=== PATIENT | female | born 1950 | race Caucasian/White ===

== ENCOUNTER → 2020-09-01 11:48 | Outpatient (CLI) | payer MEDICARE, OTHER, SELFPAY ==
--- NOTE | ~2020-09-01 | MM_ITS ---
EXAMINATION: MM screening daniel BI w rakan HISTORY: Screening mammogram TECHNIQUE: Craniocaudal and mediolateral oblique 3-D tomosynthesis images were obtained and synthetic 2-D images were generated. CAD analysis was submitted and interpreted. COMPARISON: 03/13/2019, 02/04/2018, 11/08/2016 bilateral digital screening mammogram examinations BREAST PARENCHYMAL COMPOSITION: There are scattered areas of fibroglandular density. FINDINGS: Occasional low-density circumscribed opacities are again noted. Minimal benign calcificatio n. There is no evidence of suspicious mass, calcification, or architectural distortion to suggest mal ignancy in either breast. There has been no suspicious interval change. IMPRESSION: 1. No mammographic evidence of malignancy. 2. Recommend routine screening mammography in one year. BI-RADS Category 2: Benign finding(s). Reviewed, dictated and finalized at location A.
== END ==
PROVIDERS: Visit Provider Nurse Practitioner
DX: Z12.31 Encounter for screening mammogram for malignant neoplasm of breast (principal)
CPT/HCPCS: 77063; 77067

== ENCOUNTER → 2021-07-11 11:25 | Outpatient (CLI) | payer MEDICARE, OTHER, SELFPAY ==
--- NOTE | ~2021-07-11 | US_ITS ---
EXAMINATION: US transvaginal DATE: 07/11/2021 11:48 INDICATION: Postmenopausal bleeding TECHNIQUE: Multiple endovaginal sonographic images of the pelvis were obtained. COMPARISON: None. FINDINGS: The uterus measures 7.6 x 3.6 x 4.4 cm. The endometrial complex measures 11 mm. The ovaries are not visualized however no adnexal abnormality is seen. There is no free fluid in the pelvis. A n abothian cyst is noted in the cervix. IMPRESSION: 1. Endometrial thickening which may be due to hyperplasia, polyp, or malignancy. Endometrial sampling is recommended. Reviewed, dictated and finalized at location B. IMPRESSION: 1. Endometrial thickening which may be due to hyperplasia, polyp, or malignancy . Endometrial sampling is recommended.
== END ==
PROVIDERS: PCP Family Medicine; Visit Provider Nurse Practitioner
DX: N95.0 Postmenopausal bleeding (principal); R93.89 Abnormal findings on diagnostic imaging of other specified body structures; N88.8 Other specified noninflammatory disorders of cervix uteri
CPT/HCPCS: 76830

== ENCOUNTER 2021-08-24 08:53 | Outpatient (CLI) | payer MEDICARE, OTHER, SELFPAY ==
[2021-08-24 09:32] LABS: Anion Gap 11 mmol/L (8-16); Blood Urea Nitrogen 19 mg/dL (7-17); Calcium 9.5 mg/dL (8.4-10.2); Carbon Dioxide 30 mmol/L (22-30); Chloride 99 mmol/L (98-107); Estimated Glomerular Filt Rate > 60; Glucose 158 mg/dL (65-110); Sodium 140 mmol/L (137-145)
== END 2021-08-24 08:54 | disposition home or self-care (01) ==
PROVIDERS: Anesthesiology; PCP Family Medicine; Visit Provider Obstetrics & Gynecology Gynecology
DX: I10 Essential (primary) hypertension (principal); Z01.818 Encounter for other preprocedural examination
CPT/HCPCS: 36415; 80048

== ENCOUNTER 2021-08-28 02:41 | Day surgery (SDC) | payer MEDICARE, OTHER, SELFPAY ==
[2021-08-23 13:02] VITALS: BMI 41.6
[2021-08-28 07:32] VITALS: BP 141/70; PULSE 69; RESP 16; TEMP 36.8; O2SAT 98
[2021-08-28] MEDS: ACETAMINOPHEN 500 MG TABLET 1000 MG PO (07:51)
--- NOTE | 2021-08-28 07:53 | P.HP_ITS ---
History of Present Illness History of Present Illness Consent: Risks, benefits, and alternatives have been discussed and questions answered. Patient agrees to proceed with procedure. Chief complaint: post menopausal bleeding Narrative: Nelia Rosado is a 71 year old female With postmenopausal bleeding. She underwent pelvic ultrasound which reveals a thickened endometrial lining at 11mm. It was recommended to undergo D&C hysteroscopy. Risks of infection, bleeding, perforation, and possible pathology were reviewed. Patient voices understanding and agrees to proceed. Review of Systems Constitutional: Constitutional: Reports fatigue and Reports night sweats ( And hot flashes) Musculoskeletal: Musculoskeletal: Reports arthralgias [facility] Past Medical History Medical History (Updated 08/28/21 @ 07:59 by Portia Smith MD) Neck mass excision 2019 (normal spontaneous vaginal delivery) Obstructive sleep apnea Scoliosis status post surgery in 1970 Surgical History Surgical History (Updated 08/28/21 @ 07:58 by Portia Smith MD) History of Status post cholecystectomy Status post total hip replacement, left Social History Social History Smoking status: Never smoker Alcohol intake: current Alcohol use details: ONE DRINK PER MONTH Living arrangements: with family Spiritual care concerns: No Meds Home Medications and Allergies Home Medications Medication Instructions Recorded Confirmed Type aspirin [Aspir-Low] 81 mg PO HS 08/23/21 08/28/21 History calcium carbonate-vitamin D3 2 cap PO DAILY 08/23/21 08/28/21 History [Calcium 600 + D(3)] hydrochlorothiazide 25 mg PO DAILY 08/23/21 08/28/21 History metoprolol tartrate 100 mg PO BID 08/23/21 08/28/21 History pantoprazole 40 mg PO DAILY 08/23/21 08/28/21 History sucralfate 1 g PO BID 08/23/21 08/28/21 History Allergies Allergy/AdvReac Type Severity Reaction Status Date / Time Sulfa (Sulfonamide Allergy Severe THROAT Verified 08/28/21 07:47 Antibiotics) SWELLING Exam Const: General: healthy appearing and alert Orientation/consciousness: patient oriented x3 Resp: Effort & Inspection: normal respiratory effort Auscultation: clear to auscultation bilaterally Cardio: Rate: regular rate Rhythm: regular rhythm GI: GI Palp: Yes Soft to palpation, No Tenderness to palpation present (GI) and No Palpable mass present : External Female Exam: normal external appearance Speculum Exam - Vagina: normal appearance of the vagina, normal vaginal discharge and vagina atrophic Speculum Exam - Cervix: normal appearance of the cervix Bimanual exam- vagina & uterus: uterine size normal and consistency normal Bimanual Exam- Adnexa, other: normal adnexae and No adnexal tenderness Neuro: General: patient oriented x3 Assessment and Plan Assessment and plan (1) Post-menopausal bleeding: Code(s): N95.0 - Postmenopausal bleeding Status: Acute Assessment and Plan: plan to proceed with D&C hysteroscopy
--- NOTE | 2021-08-28 07:53 | WPDHPUPDATE1 ---
History and Physical Update Update Date/Time: 08/28/21 07:53 History and Physical has been reviewed, including an updated exam of the patient. There are NO changes in the patient's condition. Risks, benefits, and alternatives have been discussed and questions answered. Patient agrees to proceed with procedure.
[2021-08-28] MEDS: LACTATED RINGERS 1,000 ML 30 ML IV CONT (08:00)
--- NOTE | 2021-08-28 08:06 | P.PNAN_ITS ---
Anes - Initial Pre Proc Eval Procedure: Operation Date: 08/28/21 09:15 Proposed Procedures p Hysteroscopy, Dilation and Curettage - Portia Smith MD Date/Time: 08/28/21 08:06 Surgeon: Portia Smith MD Pre Op Diagnosis: post menopausal bleeding Patient Data Age: 71 Gender: F Height: 1.68 m Weight: 117.1 kg Last Vital Signs Temp 36.8 C 08/28/21 07:32 Pulse 69 08/28/21 07:32 Resp 16 08/28/21 07:32 BP 141/70 H 08/28/21 07:32 Pulse Ox 98 08/28/21 07:32 Allergies Allergy/AdvReac Type Severity Reaction Status Date / Time Sulfa (Sulfonamide Allergy Severe THROAT Verified 08/28/21 07:47 Antibiotics) SWELLING Home Medications Medication Instructions Recorded Confirmed Type aspirin [Aspir-Low] 81 mg PO HS 08/23/21 08/28/21 History calcium carbonate-vitamin D3 2 cap PO DAILY 08/23/21 08/28/21 History [Calcium 600 + D(3)] hydrochlorothiazide 25 mg PO DAILY 08/23/21 08/28/21 History metoprolol tartrate 100 mg PO BID 08/23/21 08/28/21 History pantoprazole 40 mg PO DAILY 08/23/21 08/28/21 History sucralfate 1 g PO BID 08/23/21 08/28/21 History Patient hx anesthesia problems: none Family hx anesthesia problems: none Results Review: All pre-operative results and documents have been reviewed as part of the pre-operative evaluation. [facility] Past Medical History Medical History Neck mass excision 2019 (normal spontaneous vaginal delivery) Obstructive sleep apnea Scoliosis status post surgery in 1970 Surgical History Surgical History History of Status post cholecystectomy Status post total hip replacement, left Social History Social History Smoking status: Never smoker Alcohol intake: current Alcohol use details: ONE DRINK PER MONTH Living arrangements: with family Spiritual care concerns: No Anes - Eval Final PreProcedure Day of Procedure 08/28/21 08:06 Patient weight: morbidly obese Heart: regular rate and rhythm Lungs: clear to auscultation Airway: Mallampati scale class II Neurological: alert and oriented Last oral intake: >/= 8 hours ASA classification: III Emergent: no Anesthetic plan: proceed Anesthesia type and monitoring: general GIVS and standard monitoring Results Review: All pre-operative results and documents have been reviewed as part of the pre-operative evaluation. Informed Consent: The patient's anesthetic plan and its attendant risks and benefits were discussed with the patient/family/POA. Questions were solicited and answers provided to the satisfaction of the patient/family/POA.
[2021-08-28] MEDS: LIDOCAINE HCL 1% PF 30 ML VIAL INFILTRATE (09:09)
--- NOTE | 2021-08-28 09:20 | P.OP_ITS ---
Procedure Note - Detailed Date of Procedure 08/28/21 Pre-op Diagnosis post menopausal bleeding Post-op Diagnosis same Procedure Performed D&C hysteroscopy with MyoSure resection Surgeon Portia Smith MD Anesthesia MAC and local Findings uterus sounds to 9cm; 2 large polyps 1 arising from the right sidewall and 1 arising from the left sidewall; atrophic appearance Description of Procedure the patient was taken to the operating room and placed under anesthesia in the dorsal lithotomy position. She is prepped and draped in usual sterile fashion. Malverne speculum was placed in the vagina and the cervix was grasped on the anterior lip with a tenaculum. The cervix was injected with 1% lidocaine in each quadrant. The uterus is sounded to 9cm and the cervix is serially dilated with Hegar. The diagnostic hysteroscope was placed with the stated findings. The MyoSure device is opened and placed in under direct visualization both polyps are removed in their entirety. The hysteroscope was removed and the medium sharp curette is used to curette the endometrium until a good uterine cry was noted in all areas. Minimal materials obtained consistent with the atrophic appearance. All instruments are removed. Sponge, needle, and instrument counts are correct per the OR staff. Patient is awakened from anesthesia and taken to recovery in stable condition. Estimated Blood Loss 5 Drains No Packing No Pathology yes ( Endometrial shavings and curettings) Complications No immediate complications Condition stable Disposition PACU
[2021-08-28 09:23] VITALS: BP 136/61; PULSE 61; RESP 15; O2SAT 95
[2021-08-28 09:50] VITALS: BP 137/67; PULSE 59; RESP 16
[2021-08-28] MEDS: oxyCODONE HCL (*CRX) 5 MG TAB IR PO (10:06)
== END 2021-08-28 10:10 | disposition home or self-care (01) ==
PROVIDERS: PCP Family Medicine; Visit Provider Obstetrics & Gynecology Gynecology
PROC: 0U5B8ZZ Destruction of Endometrium, Via Natural or Artificial Opening Endoscopic (ICD-10-PCS; CPT 58563; principal; 2021-08-28 09:15)
DX: N95.0 Postmenopausal bleeding (principal); N84.0 Polyp of corpus uteri; G47.33 Obstructive sleep apnea (adult) (pediatric); Z79.82 Long term (current) use of aspirin; E66.01 Morbid (severe) obesity due to excess calories; Z68.41 Body mass index [BMI] 40.0-44.9, adult
CPT/HCPCS: 58558; 36415; 80048; 88305; A9270; J2704; J3010; J7030; J7120

== ENCOUNTER → 2021-09-05 10:23 | Outpatient (CLI) | payer MEDICARE, OTHER, SELFPAY ==
--- NOTE | ~2021-09-05 | MM_ITS ---
EXAMINATION: MM screening daniel BI w rakan HISTORY: Screening TECHNIQUE: Craniocaudal and mediolateral oblique 3-D tomosynthesis images were obtained and synthetic 2-D images were generated. CAD analysis was submitted and interpreted. COMPARISON: Comparison to multiple prior studies sequentially, with oldest reviewed study dated 03/2014. BREAST PARENCHYMAL COMPOSITION: The breasts are almost entirely fatty. FINDINGS: There is no evidence of suspicious mass, calcification, or architectural distortion to sugg est malignancy in either breast. There has been no suspicious interval change. IMPRESSION: 1. No mammographic evidence of malignancy. 2. Recommend routine screening mammography in one year. BI-RADS Category 1: Negative Reviewed, dictated and finalized at location A.
== END ==
PROVIDERS: PCP Family Medicine; Visit Provider Nurse Practitioner
DX: Z12.31 Encounter for screening mammogram for malignant neoplasm of breast (principal)
CPT/HCPCS: 77063; 77067

== ENCOUNTER → 2023-02-05 11:05 | Outpatient (CLI) | payer MEDICARE, OTHER, SELFPAY ==
--- NOTE | ~2023-02-05 | DEXA_ITS ---
Bone Density Report Name: YON LOCK Age: 72 Sex: Female Ethnicity: White Date of : 1950 Indication: postmenopausal; screening for osteoporosis; height loss; Referring Provider: FITO, ELLA Study: Bone densitometry was performed. Exam Date: February 05, 2023 Accession number: [id number] Bone Density: Region BMD T-score Z-score Classification Total Forearm (Left) 0.502 -1.2 1.0 1/3 Forearm (Left) 0.677 -0.1 2.1 UD Forearm (Left) 0.332 -1.6 0.1 World Health Organization criteria for BMD impression classify patients as: Normal (T-score at or above -1.0), Osteopenia (T-score between -1.0 and -2.5), or Osteoporosis (T-score at or below -2.5). Clinical Information Provided by Patient: Has used the following medications: Vitamin D, Calcium Patient maximum height was 68 Menopause Age: 52 No regular weight bearing exercise Does not regularly consume dairy products Drinks caffeinated beverages Onset of menses at age 18 Number of children 2 Impression: The patient has normal bone mass. Discussion: LOW RISK OF FRACTURE; BONE DENSITY IS WELL ABOVE THE MINIMUM DESIRABLE LEVEL AND ABOVE AVERAGE FOR AGE AND SEX AT ALL SKELETAL SITES TESTED. This person's bone density is above expected limits for age and sex. This is rarely clinically significant, but should be pursued if there are significant musculoskeletal complaints. The patient should follow a healthful lifestyle (good nutrition with adequate calcium and vitamin D, and appropriate weight-bearing exercise). Follow-Up: Consider repeating this study in 5 years or sooner if there is some new clinical indication. Reported by: TIGRE on 02/05/2023 11:51:00 AM. Reviewed, dictated and finalized at location Faisal BOYD
--- NOTE | ~2023-02-05 | MM_ITS ---
EXAMINATION: MM screening daniel BI w rakan HISTORY: Screening mammogram TECHNIQUE: Craniocaudal and mediolateral oblique 3-D tomosynthesis images were obtained and synthetic 2-D images were generated. CAD analysis was submitted and interpreted. COMPARISON: 09/05/2021, 09/01/2020, 03/13/2019 bilateral screening mammogram examinations BREAST PARENCHYMAL COMPOSITION: The breasts are almost entirely fatty. FINDINGS: There is an 8 mm asymmetric density in the inner mid right breast at mid depth. Diagnostic right mammogram and targeted right breast ultrasound examination are recommended. Otherwise there is no evidence of suspicious mass, calcification, or architectural distortion to sugg est malignancy in either breast. There has been no other suspicious interval change. IMPRESSION: 1. 8 mm asymmetric opacity, inner mid right breast 2. Diagnostic right mammogram and targeted right breast ultrasound examination are recommended BI-RADS Category 0: Incomplete: Needs additional imaging evaluation. Reviewed, dictated and finalized at location A.
--- NOTE | ~2023-02-05 | DEXA_ITS ---
Bone Density Report Name: YON LOCK Age: 72 Sex: Female Ethnicity: White Date of : 1950 Indication: postmenopausal; screening for osteoporosis; height loss; Referring Provider: FITO, ELLA Study: Bone densitometry was performed. Exam Date: February 05, 2023 Accession number: [id number] Bone Density: Region BMD T-score Z-score Classification Femoral Neck (Right) 0.816 -0.3 1.5 Normal Total Hip (Right) 0.927 -0.1 1.4 Normal World Health Organization criteria for BMD impression classify patients as: Normal (T-score at or above -1.0), Osteopenia (T-score between -1.0 and -2.5), or Osteoporosis (T-score at or below -2.5). 10-year Fracture Risk: FRAX not reported because: All T-scores for Spine Total, Hip Total, Femoral Neck at or above -1.0 Previous Exams: Region Exam Age BMD T-score BMD Change BMD Change Date g/cm2 vs Baseline vs Previous Total Hip(Right) 02/05/2023 72 0.927 -0.1 0.208 0.047 03/13/2019 68 0.879 -0.5 0.161 0.007 11/08/2016 66 0.872 -0.6 0.154 0.103* 09/22/2013 63 0.769 -1.4 0.051 -0.067 10/24/2005 55 0.836 -0.9 0.117 0.117 12/11/2003 53 0.718 -1.8 *Denotes significance at 95% confidence level, LSC for Total Hip = 0.027 g/cm2 Clinical Information Provided by Patient: Has used the following medications: Vitamin D, Calcium Patient maximum height was 68 Menopause Age: 52 No regular weight bearing exercise Does not regularly consume dairy products Drinks caffeinated beverages Onset of menses at age 18 Number of children 2 Impression: The patient has normal bone mass. No significant bone loss was observed. Discussion: BONE DENSITY IS ABOVE THE MINIMUM DESIRABLE LEVEL AT ALL SKELETAL SITES TESTED. This patient?s bone mineral density is above the minimum desirable level (T-score -1.0 or better) at all sites measured. The patient should follow a healthful lifestyle (good nutrition with adequate calcium and vitamin D, and appropriate weight-bearing exercise). Follow-Up: Consider repeating this study in 5 years or sooner if there is some new clinical indication. Reported by: TIGRE on 02/05/2023 11:37:00 AM. Reviewed, dictated and finalized at location Faisal BOYD
== END ==
PROVIDERS: PCP Nurse Practitioner; Visit Provider Nurse Practitioner
DX: Z12.31 Encounter for screening mammogram for malignant neoplasm of breast (principal); Z78.0 Asymptomatic menopausal state; R92.8 Other abnormal and inconclusive findings on diagnostic imaging of breast
CPT/HCPCS: 77063; 77067; 77080; 77081

== ENCOUNTER → 2023-03-05 09:23 | Outpatient (CLI) | payer MEDICARE, OTHER, SELFPAY ==
--- NOTE | ~2023-03-05 | MMUS_ITS ---
EXAMINATION: MM diagnostic daniel RT w rakan, US breast RT limited HISTORY: Right breast mass on screening mammogram TECHNIQUE: Additional 3-D tomosynthesis images of the right breast were performed and synthetic 2-D i mages were generated. CAD analysis was submitted and interpreted. High resolution limited right breas t ultrasound was performed. COMPARISON: 02/05/2023, 09/05/2021, 09/01/2020, 03/13/2019, 02/04/2018 FINDINGS: MAMMOGRAPHIC FINDINGS: There is an approximately 8 mm indistinct mass at the 4:00 location, 6 cm from the nipple which appea rs to be waxing and waning compared to multiple prior mammograms. No suspicious calcification or arch itectural distortion are identified. ULTRASOUND: There is no evidence of focal abnormal solid or cystic mass in the vicinity of the mammographic findi ng in question. There is a 5 mm cyst at the 3:00 location near the nipple. IMPRESSION: 1. Probably benign right breast findings. 2. Recommend 6 month follow-up right diagnostic mammogram and possible ultrasound. BI-RADS category 3, probably benign findings. Reviewed, dictated and finalized at location A. IMPRESSION: 1. Probably benign right breast findings. 2. Recommend 6 month follow-up right diagnostic mammogram and possible ultrasou nd. BI-RADS category 3, probably benign findings.
== END ==
PROVIDERS: PCP Obstetrics & Gynecology Gynecology; Visit Provider Obstetrics & Gynecology Gynecology
DX: R92.8 Other abnormal and inconclusive findings on diagnostic imaging of breast (principal)
CPT/HCPCS: 76642; 77061; 77065; G0279

== ENCOUNTER → 2023-09-06 09:19 | Outpatient (CLI) | payer MEDICARE, OTHER, SELFPAY ==
--- NOTE | ~2023-09-06 | MMUS_ITS ---
EXAMINATION: MM diagnostic daniel RT w rakan, US breast RT limited HISTORY: Six-month follow-up for probably benign right breast mass TECHNIQUE: Craniocaudal, mediolateral, and mediolateral oblique 3-D tomosynthesis images of the right breast were performed and synthetic 2-D images were generated. CAD analysis was submitted and interp reted. High resolution limited right breast ultrasound was performed. COMPARISON: 03/05/2023, 02/05/2023, 09/05/2021, 08/12/2020, 03/13/2019 BREAST PARENCHYMAL COMPOSITION: The breasts are almost entirely fatty. FINDINGS: MAMMOGRAPHIC FINDINGS: Again seen is a waxing and waning, 9 mm indistinct mass at the 4:00 location 6 cm from the nipple in the right breast. No suspicious calcification or architectural distortion are identified. There has b een no suspicious interval change. ULTRASOUND: There is a 6 mm cyst at the 3:00 location 3 cm from the nipple. No definite sonographic correlate is identified for the mammographic finding in question. IMPRESSION: 1. Probably benign right breast mass. 2. Recommend 6 month follow-up bilateral diagnostic mammogram and right breast ultrasound. BI-RADS category 3, probably benign findings. Reviewed, dictated and finalized at location A. IMPRESSION: 1. Probably benign right breast mass. 2. Recommend 6 month follow-up bilateral diagnostic mammogram and right breast ultrasound. BI-RADS category 3, probably benign findings.
== END ==
PROVIDERS: PCP Obstetrics & Gynecology Gynecology; Visit Provider Obstetrics & Gynecology Gynecology
DX: R92.8 Other abnormal and inconclusive findings on diagnostic imaging of breast (principal)
CPT/HCPCS: 76642; 77061; 77065; G0279

== ENCOUNTER 2024-08-28 09:24 | Outpatient (CLI) | payer MEDICARE, OTHER, SELFPAY ==
--- NOTE | ~2024-08-28 | MMUS_ITS ---
EXAMINATION: MM diagnostic daniel BI w rakan, US breast RT limited HISTORY: Follow-up right breast mass TECHNIQUE: Additional 3-D tomosynthesis images of the right breast were performed and synthetic 2-D i mages were generated. CAD analysis was submitted and interpreted. High resolution Limited right breas t ultrasound was performed. COMPARISON: Comparison to multiple prior studies sequentially, with oldest reviewed study dated 08/05. BREAST PARENCHYMAL COMPOSITION: Not Dense: The breasts are almost entirely fatty. FINDINGS: MAMMOGRAPHIC FINDINGS: The left breast is stable without evidence for malignancy. There is a mass in the lower inner quadran t of the right breast with ill-defined margins. ULTRASOUND: Limited right breast ultrasound: At 3:00, 3 cm from the nipple there is a 7 x 6 x 4 mm hypoechoic mas s with heterogeneous internal echotexture, no significant posterior features and no internal vascular ity. This is slightly larger than on prior examination when it measured 6 x 4 x 3 mm. At 1:00, 6 cm f rom the nipple there is 2 mm cyst. At 5:00, 5 cm from the nipple there is an irregular shaped hypoech oic mass measuring 6 x 7 x 4 mm with no internal vascularity or posterior features. IMPRESSION: 1. Abnormal right breast masses at 3:00, 3 cm from the nipple measuring 7 mm and at 5:00, 5 cm from t he nipple measuring 7 mm. 2. Ultrasound-guided biopsies recommended. BI-RADS category 4, suspicious findings. Reviewed, dictated and finalized at location B. IMPRESSION: 1. Abnormal right breast masses at 3:00, 3 cm from the nipple measuring 7 mm an d at 5:00, 5 cm from the nipple measuring 7 mm. 2. Ultrasound-guided biopsies recommended. BI-RADS category 4, suspicious findings.
== END 2024-08-28 09:25 | disposition home or self-care (01) ==
LOC: MICIMG 09:25
PROVIDERS: PCP Nurse Practitioner; Visit Provider Nurse Practitioner
DX: R92.8 Other abnormal and inconclusive findings on diagnostic imaging of breast (principal)
CPT/HCPCS: 76642; 77062; 77066; G0279